=== PATIENT | male | born 1990 | race Caucasian/White ===

== ENCOUNTER 2020-04-09 23:40 | Inpatient (IN) ==
[~2020-04-09 23:40] MED LIST: DEXTROSE 50% 25 GM/50 ML SYRINGE IV ONE; levETIRAcetam 500 MG/5 ML VIAL IV ONE
[2020-04-09] MEDS ORDERED: DEXTROSE 50% 25 GM/50 ML SYRINGE IV PRN (23:46)
[2020-04-10] MEDS ORDERED: LORazepam 2 MG/1 ML VIAL IV STA (00:02)
[2020-04-10] MEDS ORDERED: LACOSAMIDE INJ 200 MG in SODIUM CHLORIDE 0.9% 50 ML IV STA (00:03)
[2020-04-10] MEDS ORDERED: LORazepam 2 MG/1 ML VIAL ONE (00:03)
[2020-04-10] MEDS ORDERED: LACOSAMIDE 200 MG/20 ML VIAL IV ONE (00:15)
[2020-04-10] MEDS ORDERED: SODIUM CHLORIDE 0.9% 500 ML IV STA (00:50)
[2020-04-10 01:12] LABS: Basophils % 0.4 % (0.0-0.8); Eosinophils # 0.1 10*3/uL (0.0-0.87); Eosinophils % 1.1 % (0.00-10.9); Hematocrit 45.1 VOL% (42.0-52.0); Hemoglobin 15.3 GM/DL (14.0-18.0); Immature Granulocytes % 0.6 %; Immature Granulocytes Absolute 0.05 #; Lymphocytes # 2.8 10*3/uL (1.4-4.0); Lymphocytes % 33.7 % (21.2-54.2); Mean Corpuscular HGB Conc 33.9 GM/DL (32-36); Mean Corpuscular Volume 91.9 FL (87-102); Mean Platelet Volume 10.7 FL (9.6-12.0); Monocytes % 8.3 % (1.7-12.7); Neutrophils % 55.9 % (38.7-73.9); Platelet Count 280 T/CUMM (130-400); Red Blood Count 4.91 MC/CUMM (3.8-5.5); Red Cell Distribution Width 12.8 % (9.3-17.3); White Blood Count 8.2 T/CUMM (4-12)
[2020-04-10 01:38] LABS: Alanine Aminotransferase 18 U/L (16-61); Albumin 3.9 G/DL (3.4-5.0); Alkaline Phosphatase 62 U/L (45-117); Aspartate Amino Transferase 13 U/L (0-37); Bilirubin,Total < 0.39 MG/DL (0.2-1.0); Blood Urea Nitrogen 10 MG/DL (7-18); Calcium 9.1 MG/DL (8.5-10.1); Estimated Glom Filtration Rate 136 ML/MIN; Glucose 86 MG/DL (74-106); Osmolality,Calculated 280.1 MOS/KG (273-304); Total Protein 7.7 G/DL (6.4-8.3)
[2020-04-10] MEDS ORDERED: VALPROIC ACID INJ 1,000 MG in SODIUM CHLORIDE 0.9% 100 ML IV STA (02:00)
[2020-04-10] MEDS ORDERED: VALPROIC ACID IV ONE (02:49)
[2020-04-10 03:04] LABS: Apearance,Urine CLEAR (Clear); Bilirubin,Urine Negative (Negative); Blood, Urine Negative (Negative); Glucose,Urine (UA) 50 mg/dL (Negative); Ketones,Urine Negative (Negative); Nitrite,Urine Negative (Negative); Protein,Urine Negative; RBC,Urine 1 /HPF (0-4); Urine Color Yellow (Yellow); Urine Specific Gravity 1.016 (1.001-1.035); Urine Urobilinogen < 2.0 EU/DL (0.2-1.0); WBC,Urine 1 /HPF (0-6)
[2020-04-10 03:19] LABS: Barbiturates Screen,Urine Negative (Negative); Benzodiazepines Screen,Urine Negative (Negative); Cannabinoid Screen,Urine Positive (Negative); Opiate Screen,Urine Negative (Negative); Phencyclidine Screen,Urine Negative (Negative)
[2020-04-10] MEDS ORDERED: ACETAMINOPHEN 325 MG TABLET PO PRN (04:00)
[2020-04-10] MEDS ORDERED: ONDANSETRON 4 MG/2 ML VIAL IV PRN (04:00)
[2020-04-10] MEDS ORDERED: LORazepam 2 MG/1 ML VIAL IV PRN (04:00)
[2020-04-10] MEDS: SODIUM CHLORIDE 0.9% 1,000 ML IV SCH ×2 (05:12→20:45)
[2020-04-10 05:18] LABS: Basophils % 0.5 % (0.0-0.8); Eosinophils # 0.1 10*3/uL (0.0-0.87); Eosinophils % 1.7 % (0.00-10.9); Hematocrit 41.5 VOL% (42.0-52.0); Hemoglobin 14.1 GM/DL (14.0-18.0); Immature Granulocytes % 0.6 %; Immature Granulocytes Absolute 0.05 #; Lymphocytes # 2.8 10*3/uL (1.4-4.0); Lymphocytes % 35.8 % (21.2-54.2); Mean Platelet Volume 9.5 FL (9.6-12.0); Monocytes % 9.2 % (1.7-12.7); Neutrophils % 52.2 % (38.7-73.9); Platelet Count 236 T/CUMM (130-400); Red Blood Count 4.51 MC/CUMM (3.8-5.5); Red Cell Distribution Width 12.9 % (9.3-17.3); White Blood Count 7.7 T/CUMM (4-12)
[2020-04-10 06:10] LABS: Albumin 3.5 G/DL (3.4-5.0); Bilirubin,Total 0.8 MG/DL (0.2-1.0); Calcium 8.6 MG/DL (8.5-10.1); Total Protein 6.7 G/DL (6.4-8.3)
[2020-04-10] MEDS: DOCUSATE SODIUM 100 MG CAPSULE PO SCH ×2 (09:24→20:44)
[2020-04-10] MEDS: PANTOPRAZOLE 40 MG TABLET PO SCH (09:24)
[2020-04-10] MEDS: DIVALPROEX ER 500 MG TABLET PO SCH ×2 (14:02→20:44)
[2020-04-10] MEDS: levETIRAcetam 500 MG TABLET PO SCH ×2 (14:02→20:44)
[2020-04-10] MEDS: busPIRone 10 MG TABLET PO SCH ×2 (14:02→20:49)
[2020-04-10] MEDS: traZODone 50 MG TABLET PO PRN (20:49)
[2020-04-11] MEDS: SODIUM CHLORIDE 0.9% 1,000 ML IV SCH ×2 (06:36→21:45)
[2020-04-11] MEDS ORDERED: LORazepam 2 MG/1 ML VIAL IV PRN (07:02)
[2020-04-11] MEDS: DOCUSATE SODIUM 100 MG CAPSULE PO SCH ×2 (10:00→20:25)
[2020-04-11] MEDS: levETIRAcetam 500 MG TABLET PO SCH ×2 (10:04→20:26)
[2020-04-11] MEDS: DIVALPROEX ER 500 MG TABLET PO SCH ×2 (10:04→20:25)
[2020-04-11] MEDS: PANTOPRAZOLE 40 MG TABLET PO SCH (10:05)
[2020-04-11] MEDS: busPIRone 10 MG TABLET PO SCH ×2 (10:05→20:30)
[2020-04-11] MEDS ORDERED: LORazepam 2 MG/1 ML VIAL IV ONE (12:54)
[2020-04-11] MEDS: traZODone 50 MG TABLET PO PRN (20:30)
[2020-04-12 08:13] VITALS: BP 134/76
[2020-04-12] MEDS: busPIRone 10 MG TABLET PO SCH (08:20)
[2020-04-12] MEDS: PANTOPRAZOLE 40 MG TABLET PO SCH (08:20)
[2020-04-12] MEDS: levETIRAcetam 500 MG TABLET PO SCH (08:21)
[2020-04-12] MEDS: DIVALPROEX ER 500 MG TABLET PO SCH (08:22)
[2020-04-12] MEDS: DOCUSATE SODIUM 100 MG CAPSULE PO SCH (08:24)
[2020-04-12] MEDS: SODIUM CHLORIDE 0.9% 1,000 ML IV SCH (11:17)
== END 2020-04-12 12:06 | disposition home or self-care (01) | DRG 53 ==
LOC: N.EDINP 23:40 → N.ED 23:40 → N.TELEN 04-10 15:37
PROVIDERS: ADMIT Family Medicine; ATTEND Family Medicine